=== PATIENT | male | born 1985 | race Caucasian/White ===

== ENCOUNTER 2019-10-04 10:55 | Day surgery (SDC) | payer OTHER ==
[~2019-10-04] VITALS: Ht 198.1 cm; Wt 114.4 kg
[~2019-10-04 10:55] MED LIST: IBUP-1022 PO; LR 1,000 ML IV ONE
[2019-10-04] MEDS ORDERED: LIDOCAINE 1% MDV 20ML VIAL ONE (10:56)
[2019-10-04] MEDS ORDERED: BUPIVACAINE HCL 0.25% 30 ML VIAL ONE (10:56)
[2019-10-04] MEDS ORDERED: dexameTHASONE 10 MG/1 ML VIAL PRES.FREE (J1100) ONE (10:56)
[2019-10-04] MEDS ORDERED: ceFAZolin SOD 2 GM in IV 1 EA IV ONE (11:45)
[2019-10-04] MEDS ORDERED: SUGAMMADEX SODIUM 500 MG/5 ML VIAL (BRIDION) As Ordered ONE (13:59)
[2019-10-04] MEDS ORDERED: fentaNYL 100 MCG/2 ML INJECTION (J3010) As Ordered ONE ×2 (13:59→14:50)
[2019-10-04] MEDS ORDERED: MIDAZOLAM INJ 2 MG/2 ML VIAL (J2250) As Ordered ONE ×2 (13:59→14:50)
[2019-10-04] MEDS ORDERED: ONDANSETRON 4MG/2ML VIAL (J2405) As Ordered ONE (13:59)
[2019-10-04] MEDS ORDERED: HYDROmorphone HCL 2 MG/ML 1ML VIAL (J1170) As Ordered ONE (13:59)
[2019-10-04] MEDS ORDERED: ACETAMINOPHEN 1000MG 100ML IV BTL (OFIRMEV) (J0131 PER 10MG) As Ordered ONE (13:59)
[2019-10-04] MEDS ORDERED: propofoL 200 MG/20 ML VIAL As Ordered ONE (13:59)
[2019-10-04] MEDS ORDERED: ROCURONIUM BROMIDE 50 MG/5 ML VIAL As Ordered ONE (13:59)
[2019-10-04] MEDS ORDERED: LIDOCAINE 2% INJ 100 MG/5 ML SDV (FOR ANES.) As Ordered ONE (13:59)
[2019-10-04] MEDS ORDERED: dexameTHASONE 4 MG/ML 1ML VIAL (J1100) As Ordered ONE (13:59)
[2019-10-04] MEDS ORDERED: KETOROLAC 60 MG/2 ML VIAL (J1885) As Ordered ONE (13:59)
--- NOTE | 2019-10-04 14:03 | ECGEPIP ---
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 Electronically Signed on 10-04-2019 14:02:42 EST by Fabián Avelar
[2019-10-04] MEDS ORDERED: BUPIVACAINE HCL 0.25% 30 ML VIAL As Ordered ONE (14:50)
[2019-10-04] MEDS ORDERED: MIDAZOLAM INJ 2 MG/2 ML VIAL (J2250) IV SCH (16:15)
[2019-10-04] MEDS ORDERED: fentaNYL 100 MCG/2 ML INJECTION (J3010) IV SCH (16:15)
--- NOTE | 2019-10-04 18:49 | REP ---
Left heel: Single lateral view. History: C-arm imaging intraoperative. Left Achilles repair. 7 seconds of fluoroscopy time is reported. Findings: A single lateral fluoroscopically obtained spot radiograph of the calcaneus documents operative procedure. Electronically Signed by Sai Gallegos MD 10/04/2019 08:14 P
[2019-10-04] MEDS: oxyCODONE 5MG TAB PO PRN ×2 (19:35→20:11)
[2019-10-04] MEDS: fentaNYL 100 MCG/2 ML INJECTION (J3010) IV PRN ×2 (19:47→20:00)
[2019-10-04] MEDS ORDERED: MEPERIDINE INJ 25 MG/ML VIAL (J2175) IV PRN (20:00)
[2019-10-04] MEDS ORDERED: ONDANSETRON 4MG/2ML VIAL (J2405) IV PRN (20:00)
[2019-10-04 20:40] VITALS: BP 151/91
[2019-10-04] MEDS ORDERED: LR 1,000 ML IV SCH (21:00)
--- NOTE | 2019-10-05 07:34 | RO ---
DATE OF PROCEDURE: 10/04/2019 PREOPERATIVE DIAGNOSIS: Left Achilles insertional tendinosis. POSTOPERATIVE DIAGNOSIS: Left Achilles insertional tendinosis. PROCEDURE: 1. Left Achilles debridement and repair. 2. Excision of Charbel's deformity. 3. Use of mini C-arm. SURGEON: Carleen Gonsalves MD ICE PULLER: TR Brown ANESTHESIA: General endotracheal with popliteal nerve block. SPECIMENS: Achilles tendon and calcaneal bone. ESTIMATED BLOOD LOSS: 25 mL. COMPLICATIONS: None. CONDITION: Stable to recovery. INDICATIONS: Yann Ogden is a 34-year-old male with longstanding pain at his Achilles insertion. He has failed conservative measures. The risks and benefits of surgery were discussed with the patient in detail and include, but are not limited to infection, damage to nerves and blood vessels, continue pain and stiffness, need for additional procedures. Informed consent was obtained in the office. PROCEDURE: Patient was met in the preoperative holding area where his left lower extremity was marked as the correct operative site. He underwent a nerve block by the anesthesia team. He was then taken to the operating room where he underwent general anesthesia. A well padded tourniquet was placed on the left upper thigh. He was then prepped and draped in the normal sterile fashion. He was then placed in the prone position. All bony prominences were well padded. The knees and lower extremities were also padded using foam and gel pads. Next, foot underwent a chlorhexidine scrub. The patient received antibiotics within 60 minutes prior to incision. The left lower extremity was then prepped and draped in the normal fashion. An official time out was held where the correct patient, operative side and operative procedure was verified. The leg was then exsanguinated and the tourniquet was inflated to 270 mmHg. At this point, an incision was made directly midline over the Achilles tendon. The paratenon was exposed. It was significantly scarred down to the Achilles tendon, but I was able to develop a layer to close later. Next, the Achilles tendon itself was split. There was fairly significant tendinosis, especially starting approximately 2 cm above the insertion. This was all debrided to good tendon tissue. Next, a large enthesophyte was removed with an osteotome. I then excised the Charbel's bony prominence with a 38 saw. Next, using a power rasp, I smoothed down all of the edges, including the sides, to allow for appropriate shoe wear. Copious irrigation was then performed. The tendon was reattached to the calcaneal tuberosity using an Arthrex SpeedBridge. I then closed the tendon split using #0 Vicryl. Copious irrigation was again performed. The paratenon was closed with running #2-0 Vicryl. The skin was closed with #3-0 Vicryl and #3-0 nylon. A sterile dressing was applied in addition to a well padded splint. The patient was then extubated and transferred to the recovery room in stable condition. PLAN: The patient will be non-weightbearing on the left lower extremity for six weeks. He will keep his leg elevated and be on aspirin for deep vein thrombosis (DVT) prophylaxis.
== END 2019-10-04 21:05 | disposition home or self-care (01) ==
LOC: M SDC 10:55
PROVIDERS: ATTEND Orthopaedic Surgery
DX: M76.62 Achilles tendinitis, left leg (principal); M89.8X7 Other specified disorders of bone, ankle and foot; G47.30 Sleep apnea, unspecified
CPT/HCPCS: 28118; 64445; 76000; 88300; 93005; C1713; J0131; J0690; J1100; J1170; J1885; J2250; J2405; J3010

== ENCOUNTER 2019-10-09 19:23 | Emergency (ER) | payer OTHER ==
[~2019-10-09] VITALS: Ht 198.1 cm; Wt 113.6 kg
[2019-10-09 19:23] VITALS: BP 140/68
[~2019-10-09 19:23] MED LIST changes: -LR 1,000 ML IV ONE
[2019-10-09] MEDS ORDERED: OXYC-517 PO (19:27)
[2019-10-09] MEDS ORDERED: NORCO, ANEXSIA 5/325MG TABLET (HYDROcodone/ACETAMINOPHEN) PO ONE (20:30)
[2019-10-09] MEDS ORDERED: NORCO 5/325MG TABLET (BULK FOR ED) PO ONE (20:45)
== END 2019-10-09 20:50 | disposition home or self-care (01) ==
LOC: M ED 19:23
DX: Z76.0 Encounter for issue of repeat prescription (principal); G89.18 Other acute postprocedural pain; G47.33 Obstructive sleep apnea (adult) (pediatric)